=== PATIENT | female | born 1950 | race Caucasian/White ===

== ENCOUNTER 2016-08-19 10:19 | Inpatient (IN) | payer BC, OTHER ==
[2016-08-19] MEDS ORDERED: SODIUM CHLORIDE 0.9% 1,000 ML IV STA ×2 (10:25)
[2016-08-19] MEDS ORDERED: RX INFO: IV CONTRAST WAS GIVEN 1 EACH MISC MISCELLANE PRN (10:25)
[2016-08-19 10:29] LABS: Glucose,Whole Blood 269 mg/dL (75-99)
--- NOTE | 2016-08-19 10:51 | CT ---
EXAMINATION TYPE: CT brain wo con for TPA DATE OF EXAM: 08/19/2016 10:44 AM COMPARISON: NONE HISTORY: slurred speech. Code stroke. No deficit. CT DLP: 1047.1 mGycm Automated exposure control for dose reduction was used. FINDINGS: There is no acute intracranial hemorrhage, mass effect, or midline shift identified. The ventricles and sulci are within normal limits in size. Vague area of low-attenuation left lateral rubi is nonspe cific on axial image 14 cannot exclude acute ischemia this level but is only seen well on one image. The globes are intact and the visualized sinuses are clear. Soft tissue density left office auditor y canal is felt to reflect cerumen. IMPRESSION: No acute intracranial hemorrhage or midline shift is seen.
[2016-08-19] MEDS ORDERED: LABETALOL SYRINGE 5 MG/ML IVP STA ×2 (11:01→12:04)
--- NOTE | 2016-08-19 11:03 | ED ---
General Adult HPI - General Chief complaint: Neuro Symptoms/Deficit Stated complaint: TIA symptoms Time Seen by Provider: 08/19/16 10:24 Source: patient, RN notes reviewed, old records reviewed Mode of arrival: wheelchair Limitations: no limitations - History of Present Illness Initial comments: This is a 65-year-old female here for evaluation. Patient comes in for evaluation of difficulty with speech, inability to stay the words that she wants to say. Patient denies history of high blood pressure not questionable diabetes nonsmoker with no history of similar neurological symptoms. Patient has no headache. Patient does feel anxious. Patient states she was talking a friend at [employer] and was unable to get the words that she wanted to stay out of her mouth. She had some difficulty answering questions and noticed some decreased vision to the right. - Related Data Home Medications Medication Instructions Recorded Confirmed Ezetimibe/Simvastatin [Vytorin 1 tab PO HS 08/19/16 08/19/16 10-20 mg Tablet] Folic Acid 1 mg PO DAILY 08/19/16 08/19/16 Methotrexate Sodium [Methotrexate] 2.5 mg PO DIRECTED 08/19/16 08/19/16 Nystatin 100,000 Unit/ml Susp 500,000 units PO QID 08/19/16 08/19/16 [Mycostatin Oral Susp] Propranolol HCl [Propranolol HCl 120 mg PO DAILY 08/19/16 08/19/16 ER] Zolpidem [Ambien] 10 mg PO HS 08/19/16 08/19/16 Allergies Allergy/AdvReac Type Severity Reaction Status Date / Time No Known Allergies Allergy Verified 08/19/16 10:20 Review of Systems ROS Statement: Those systems with pertinent positive or pertinent negative responses have been documented in the HPI. ROS Other: All systems not noted in ROS Statement are negative. Past Medical History History of Any Multi-Drug Resistant Organisms: None Reported Past Psychological History: No Psychological Hx Reported General Exam - General Exam Comments Initial Comments: NIH of 6 Limitations: no limitations General appearance: alert, in no apparent distress Head exam: Present: atraumatic, normocephalic, normal inspection Eye exam: Present: normal appearance, PERRL, EOMI. Absent: scleral icterus, conjunctival injection, periorbital swelling ENT exam: Present: normal exam, mucous membranes moist Neck exam: Present: normal inspection. Absent: tenderness, meningismus, lymphadenopathy Respiratory exam: Present: normal lung sounds bilaterally. Absent: respiratory distress, wheezes, rales, rhonchi, stridor Cardiovascular Exam: Present: regular rate, normal rhythm, normal heart sounds. Absent: systolic murmur, diastolic murmur, rubs, gallop, clicks GI/Abdominal exam: Present: soft, normal bowel sounds. Absent: distended, tenderness, guarding, rebound, rigid Extremities exam: Present: normal inspection, full ROM, normal capillary refill. Absent: tenderness, pedal edema, joint swelling, calf tenderness Back exam: Present: normal inspection Neurological exam: Present: alert, oriented X3, CN II-XII intact Psychiatric exam: Present: normal affect, normal mood Skin exam: Present: warm, dry, intact, normal color. Absent: rash Course Vital Signs 08/19/16 10:20 Temperature 98.4 F Pulse Rate 101 H Respiratory 18 Rate Blood Pressure 254/139 O2 Sat by Pulse 93 L Oximetry - Reevaluation(s) Reevaluation #1: 08/19/16 11:01 : Stroke is paged, symptoms are no improving Reevaluation #2: 08/19/16 11:02 Patient is given blood pressure control Reevaluation #3: 08/19/16 11:36 Patient was seen and evaluated by neuro interventional, decision to TPA or treat is not needed at this time is patient's gone from an age of 6 to NIH of 3 , low NIH Medical Decision Making - Medical Decision Making 65 female with positive CVA. CV that is improving. Patient will be admitted for control of blood pressure, and neurological evaluation - Lab Data Result diagrams: 08/19/16 11:02 08/19/16 11:02 Lab Results 08/19/16 08/19/16 08/19/16 Range/Units 10:28 11:02 11:02 WBC 5.0 (3.8-10.6) k/uL RBC 5.43 H (3.80-5.40) m/uL Hgb 16.3 H (11.4-16.0) gm/dL Hct 48.1 H (34.0-46.0) % MCV 88.6 (80.0-100.0) fL MCH 30.1 (25.0-35.0) pg MCHC 33.9 (31.0-37.0) g/dL RDW 13.1 (11.5-15.5) % Plt Count 249 (150-450) k/uL Neutrophils % 63 % Lymphocytes % 26 % Monocytes % 5 % Eosinophils % 2 % Basophils % 1 % Neutrophils # 3.2 (1.3-7.7) k/uL Lymphocytes # 1.3 (1.0-4.8) k/uL Monocytes # 0.3 (0-1.0) k/uL Eosinophils # 0.1 (0-0.7) k/uL Basophils # 0.0 (0-0.2) k/uL PT (9.0-12.0) sec INR (<1.1) APTT (22.0-30.0) sec Sodium 140 (137-145) mmol/L Potassium 4.1 (3.5-5.1) mmol/L Chloride 102 (98-107) mmol/L Carbon Dioxide 25 (22-30) mmol/L Anion Gap 13 mmol/L BUN 12 (7-17) mg/dL Creatinine 0.77 (0.52-1.04) mg/dL Est GFR (MDRD) Af Amer >60 (>60 ml/min/1.73 sqM) Est GFR (MDRD) Non-Af >60 (>60 ml/min/1.73 sqM) Glucose 229 H (74-99) mg/dL POC Glucose (mg/dL) 269 H (75-99) mg/dL POC Glu Hop Sorter ID [place], [place] Calcium 9.4 (8.4-10.2) mg/dL Total Bilirubin 1.0 (0.2-1.3) mg/dL AST 25 (14-36) U/L ALT 37 (9-52) U/L Alkaline Phosphatase 105 (38-126) U/L Total Protein 7.4 (6.3-8.2) g/dL Albumin 4.0 (3.5-5.0) g/dL 08/19/16 Range/Units 11:02 WBC (3.8-10.6) k/uL RBC (3.80-5.40) m/uL Hgb (11.4-16.0) gm/dL Hct (34.0-46.0) % MCV (80.0-100.0) fL MCH (25.0-35.0) pg MCHC (31.0-37.0) g/dL RDW (11.5-15.5) % Plt Count (150-450) k/uL Neutrophils % % Lymphocytes % % Monocytes % % Eosinophils % % Basophils % % Neutrophils # (1.3-7.7) k/uL Lymphocytes # (1.0-4.8) k/uL Monocytes # (0-1.0) k/uL Eosinophils # (0-0.7) k/uL Basophils # (0-0.2) k/uL PT 10.5 (9.0-12.0) sec INR 1.0 (<1.1) APTT 24.3 (22.0-30.0) sec Sodium (137-145) mmol/L Potassium (3.5-5.1) mmol/L Chloride (98-107) mmol/L Carbon Dioxide (22-30) mmol/L Anion Gap mmol/L BUN (7-17) mg/dL Creatinine (0.52-1.04) mg/dL Est GFR (MDRD) Af Amer (>60 ml/min/1.73 sqM) Est GFR (MDRD) Non-Af (>60 ml/min/1.73 sqM) Glucose (74-99) mg/dL POC Glucose (mg/dL) (75-99) mg/dL POC Glu Hop Sorter ID Calcium (8.4-10.2) mg/dL Total Bilirubin (0.2-1.3) mg/dL AST (14-36) U/L ALT (9-52) U/L Alkaline Phosphatase (38-126) U/L Total Protein (6.3-8.2) g/dL Albumin (3.5-5.0) g/dL - Radiology Data Radiology results: report reviewed (CT brain, CTA head and neck is negative for acute disease), image reviewed Critical Care Time Critical Care Time: Yes Total Critical Care Time: 31 Disposition Clinical Impression: Cerebrovascular accident Disposition: ADMITTED IP TO THIS [facility] Condition: Serious Referrals: Lynn Miller DO [Primary Care Provider] - 1-2 days
[2016-08-19 11:12] LABS: Basophils % (A) 1 %; CH 30.5; CHCM 34.6; Eosinophils # (A) 0.1 k/uL (0-0.7); Eosinophils % (A) 2 %; HCT 48.1 % (34.0-46.0); HDW 2.43; HGB 16.3 gm/dL (11.4-16.0); Luc # (Auto) 0.13; Luc % (Auto) 3; Lymphocytes # (A) 1.3 k/uL (1.0-4.8); Lymphocytes % (A) 26 %; MCH 30.1 pg (25.0-35.0); MCHC 33.9 g/dL (31.0-37.0); MCV 88.6 fL (80.0-100.0); Mean Platelet Volume 7.2; Monocytes # (A) 0.3 k/uL (0-1.0); Monocytes % (A) 5 %; Neutrophils # (A) 3.2 k/uL (1.3-7.7); Neutrophils % (A) 63 %; RBC 5.43 m/uL (3.80-5.40); RDW 13.1 % (11.5-15.5); WBC (Perox) 4.99
[2016-08-19 11:24] LABS: ALT 37 U/L (9-52); AST 25 U/L (14-36); Alkaline Phosphatase 105 U/L (38-126); Anion Gap 13 mmol/L; Blood Urea Nitrogen 12 mg/dL (7-17); Calcium 9.4 mg/dL (8.4-10.2); Carbon Dioxide 25 mmol/L (22-30); Chloride 102 mmol/L (98-107); Glucose 229 mg/dL (74-99); Non-African American GFR(MDRD) >60 (>60 ml/min/1.73 sqM); Potassium 4.1 mmol/L (3.5-5.1); Sodium 140 mmol/L (137-145); Total Protein 7.4 g/dL (6.3-8.2)
--- NOTE | 2016-08-19 11:24 | CT ---
EXAMINATION TYPE: CT angio head neck DATE OF EXAM: 08/19/2016 11:10 AM HISTORY: Slurred speech COMPARISON: NONE CT DLP: 381.7 mGycm. Automated Exposure Control for Dose Reduction was Utilized. TECHNIQUE: CTA scan of the neck is performed with IV Contrast, patient injected with 65 mL of Omnipa que 350, axial images are obtained, coronal and sagittal reformatted images are reviewed. Three-D rec onstructed images are created on an independent workstation and reviewed. FINDINGS: Carotid/Vascular Structures: There is normal three-vessel origin from aortic arch. No significant james que is seen in aorta or 3 great vessels . The right common carotid artery shows normal origin from th e right brachiocephalic artery. There is no significant plaque or stenosis in the right common or int ernal carotid artery including level of right carotid bulb. There is patent external carotid artery w ithout significant plaque or stenosis. Left common carotid and internal carotid artery shows no significant plaque or stenosis including at level of left carotid bulb. There is patent left external carotid artery without significant plaque o r stenosis. There is dominant left vertebral artery. There is very small caliber right vertebral artery and proxi mal to mid segments, nonvisualized distal portion is noted suggesting complete stenosis or occlusion. There is patent left posterior communicating artery. There is hypoplastic right P1 segment with filli ng of P2 segment due to patent posterior communicating artery. No significant stenosis or and small c hange is seen. Images of the anterior circulation show patent anterior communicating artery. No signi ficant stenosis or aneurysmal change is evident. Other: There is air-fluid level or dependent opacification in the left maxillary sinus, query acute s inusitis. There is moderate multilevel spurring and disc space narrowing most prominent at C5-C6 and C6-C7 leve ls in the cervical spine. Multilevel uncovertebral facet degenerative changes are present bilaterally . IMPRESSION: 1. No significant focal stenosis or aneurysmal change at the level of the [place]. Normal va riant noted. 2. No significant focal stenosis in common or internal carotid arteries bilaterally. No significant p laque is present. There is nonvisualization or suspected occlusion of small caliber nondominant right vertebral artery before basilar junction incidentally noted.
[2016-08-19 11:26] LABS: Partial Thromboplastin Time 24.3 sec (22.0-30.0); Prothrombin Time 10.5 sec (9.0-12.0)
[2016-08-19] MEDS ORDERED: ASPIRIN 81 MG CHEW PO STA (11:27)
[2016-08-19] MEDS ORDERED: ASPIRIN 325 MG TAB PO STA (11:34)
[2016-08-19 11:44] LABS: Appearance,Urine Clear (Clear); Bilirubin,Urine Negative (Negative); Glucose,Urine (UA) 3+ (Negative); Ketones,Urine Negative (Negative); Leukocyte Esterase,Urine Negative (Negative); Nitrite,Urine Negative (Negative); Protein,Urine Negative (Negative); Specific Gravity,Urine 1.016 (1.001-1.035); UA Billing (MACRO vs. MICRO) CHEM; Urobilinogen,Urine <2.0 mg/dL (<2.0)
[2016-08-19 11:45] LABS: Creatine Kinase 126 U/L (30-135)
[2016-08-19 11:56] LABS: Troponin I <0.012 ng/mL (0.000-0.034)
--- NOTE | 2016-08-19 13:32 | US ---
EXAMINATION TYPE: US carotid duplex BILAT DATE OF EXAM: 08/19/2016 1:05 PM COMPARISON: NONE CLINICAL HISTORY: Stenosis. Difficulty speaking, altered mental status, headache EXAM MEASUREMENTS: RIGHT: Peak Systolic Velocity (PSV) cm/sec ----- Right CCA: 54.8 ----- Right ICA: 60.3 ----- Right ECA: 60.3 ICA/CCA ratio: 1.1 RIGHT: End Diastole cm/sec ----- Right CCA: 17.5 ----- Right ICA: 18.6 ----- Right ECA: 12.0 LEFT: Peak Systolic Velocity (PSV) cm/sec ----- Left CCA: 52.6 ----- Left ICA: 74.6 ----- Left ECA: 62.5 ICA/CCA ratio: 1.4 LEFT: End Diastole cm/sec ----- Left CCA: 18.6 ----- Left ICA: 28.5 ----- Left ECA: 14.2 VERTEBRALS (direction of flow): Right Vertebral: Antegrade Left Vertebral: Antegrade Mild plaque noted bilateral bifurcations. No increased velocities. No significant stenosis. Decreased flow right vertebral artery IMPRESSION: I DO NOT SEE EVIDENCE OF A HEMODYNAMICALLY SIGNIFICANT STENOSIS IN EITHER CAROTID SYSTEM. Criteria for Assigning % of Stenosis / Diameter reduction (Estimation based on the indirect measurements of the internal carotid artery velocities (ICA PSV). 1. Normal (no stenosis)=ICA PSV < 125 cm/s: ratio < 2.0: ICA EDV<40 cm/s. 2. Less than 50% stenosis=ICA PSV < 125 cm/s: ratio < 2.0: ICA EDV<40 cm/s. 3. 50 to 69% stenosis=ICA PSV of 125 to 230 cm/s: ration 2.0 ? 4.0: ICA EDV 40-100 cm/s. 4. Greater than 70% stenosis to near occlusion= ICA PSV > 230 cm/s: ratio > 4.0: ICA EDV > 100 cm/s. 5. Near occlusion= ICA PSV velocities may be low or undetectable: variable ratio and ICA EDV. 6. Total occlusion=unable to detect flow.
[2016-08-19 14:19] VITALS: BMI 29.7
--- NOTE | 2016-08-19 16:37 | P.CONS ---
History of Present Illness - Reason for Consult Consult date: 08/19/16 - Chief Complaint Expressive aphasia - History of Present Illness This is a 65-year-old female being evaluated by the neurology service for the above complaints. She gives no prior history of stroke or TIA. She has no significant history of hypertension. She states that she was talking to a friend at [employer] and suddenly became unable to get certain words out. She denies any headaches or dizziness lateralizing weakness. She says she may have had some decreased vision in the right eye. She has a known diagnosis of macular degeneration according to her. Initial CT of the brain showed no acute changes, but did show a questionable area of low attenuation in the left rubi. CTA of the head and neck were normal. Her carotid Doppler showed no hemodynamically significant stenosis. Her blood pressure was significantly elevated at 254/139. This was in the ER. Her labs were relatively normal except for glucose of 269, on recheck remain 229. At the time of my exam she is resting comfortably in bed and still has intermittent episodes of expressive aphasia. Review of Systems All systems: negative Constitutional: Reports as per HPI Past Medical History Past Medical History: No Reported History Additional Past Medical History / Comment(s): essential tremors History of Any Multi-Drug Resistant Organisms: None Reported Past Surgical History: Section, Hysterectomy Past Anesthesia/Blood Transfusion Reactions: No Reported Reaction Past Psychological History: No Psychological Hx Reported Smoking Status: Never smoker - Past Family History Father Family Medical History: GERD/Reflux Mother Family Medical History: Cancer, Dementia, Diabetes Mellitus Medications and Allergies Home Medications Medication Instructions Recorded Confirmed Type Ibuprofen [Advil] 400 mg PO BID 08/19/16 08/19/16 History Ranitidine HCl [Zantac] 75 mg PO DAILY 08/19/16 08/19/16 History Allergies Allergy/AdvReac Type Severity Reaction Status Date / Time No Known Allergies Allergy Verified 08/19/16 12:57 Physical Exam Vitals: Vital Signs Temp Pulse Pulse Resp BP BP Pulse Ox 08/19/16 12:53 97.1 F L 08/19/16 12:52 67 184/115 94 L 08/19/16 12:32 66 18 168/110 97 08/19/16 12:08 68 18 190/115 98 08/19/16 11:53 71 18 191/119 99 08/19/16 11:38 72 18 196/125 97 Intake and Output 08/19/16 08/19/16 08/19/16 06:59 14:59 22:59 Other: # Voids 1 Weight 86.183 kg Patient Weight 08/20/16 06:59 Weight 86.183 kg - Constitutional General appearance: average body habitus, cooperative, no acute distress - EENT Eyes: no abnormal pupil, EOMI, PERRLA, no ptosis ENT: hearing grossly normal - Neck Neck: normal ROM, no rigidity - Respiratory Respiratory: negative: prolonged expiration, prolonged inspiration - Cardiovascular Heart rate: 100 Rhythm: regular - Gastrointestinal General gastrointestinal: no distended, no tenderness - Neurologic Patient is alert awake and oriented 3. Speech and language show intermittent mild expressive aphasia. Language is normal. Naming is intact. Cranial nerves are otherwise intact. There is no lateralizing weakness. She has bilateral upper extremity postural tremors. These are of a chronic nature according to her. There is no pronator drift. Romberg is negative. Sensory exam shows no deficits in any extremity. Results CBC & Chem 7: 08/19/16 11:02 08/19/16 11:02 Assessment and Plan (1) Expressive aphasia Status: Acute (2) Hypertensive urgency Status: Acute (3) Blurred vision Status: Acute (4) Cerebrovascular accident Status: Acute (5) Hypertension Status: Chronic (6) Hyperlipidemia Status: Chronic (7) Hyperglycemia Status: Acute Plan: She has likely experienced an acute stroke causing her persistent expressive aphasia. Recommend Cardiology follow and make recommendations regarding her elevated blood pressure. I have ordered an MRI of the brain, fasting lipid panel, serum homocysteine level, and hemoglobin A1c due to her persistent elevated glucose. Speech therapy has been notified, and will evaluate. She denies any swallowing difficulties at this point. Continue neuro checks. I will start her on aspirin 325 mg daily. I will continue to follow and make recommendations based on the above workup. I have reviewed the history and physical on the above patient. I have reviewed the above note, and agree.
[2016-08-19] MEDS: SODIUM CHLORIDE 0.9% 1,000 ML IV SCH ×2 (17:22→21:48)
[2016-08-19 19:28] LABS: Hemoglobin A1C 8.4 % (4.2-6.1)
--- NOTE | 2016-08-19 20:50 | MR ---
EXAMINATION TYPE: MR brain wo con DATE OF EXAM: 08/19/2016 8:39 PM COMPARISON: NONE HISTORY: expressive aphasia Standard multiplanar, multisequence MRI departmental protocol Multiplanar, multisequence images of the brain were acquired. Diffusion weighted imaging was performe d. FINDINGS: There is mild cerebral cortical atrophy. There is no mass effect nor midline shift. There i s no sign of intracranial hemorrhage. Brainstem appears intact. There is no evidence of a posterior f sara mass. Ventricles are fairly normal size. On the FLAIR images there are scattered high signal foc i at the jovel-white matter junction of both cerebral hemispheres that measure up to 4 mm. The total n umber is approximately 10. The sella turcica is normal. Corpus callosum is intact. There is very slig ht increased signal in the subependymal white matter around the lateral ventricles. There is mild mucosal thickening in the left maxillary sinus. IMPRESSION: No evidence of acute cortical infarct. There are scattered white matter high signal small foci probab ly related to minimal small vessel ischemia. There is mild thin linear subependymal white matter incr eased signal that probably relates to CSF mechanics.
[2016-08-19] MEDS: ACETAMINOPHEN TAB 325 MG TAB PO PRN (21:51)
[2016-08-20] MEDS: SODIUM CHLORIDE 0.9% 1,000 ML IV SCH ×2 (03:53→15:17)
[2016-08-20] MEDS: ACETAMINOPHEN TAB 325 MG TAB PO PRN (06:28)
--- NOTE | 2016-08-20 07:53 | ECHOF ---
Referral Reason:Thrombus MEASUREMENTS -------- HEIGHT: 170.2 cm WEIGHT: 86.2 kg BP: 184/115 RVIDd: 3.2 cm (< 3.3) IVSd: 1.2 cm (0.6 - 1.1) LVIDd: 4.4 cm (3.9 - 5.3) LVPWd: 1.2 cm (0.6 - 1.1) IVSs: 1.6 cm LVIDs: 3.0 cm LVPWs: 1.5 cm LA Diam: 3.2 cm (2.7 - 3.8) LAESV Index (A-L): 16.92 ml/m Ao Diam: 3.1 cm (2.0 - 3.7) AV Cusp: 2.1 cm (1.5 - 2.6) MV EXCURSION: 9.111 mm (> 18.000) MV EF SLOPE: 26 mm/s (70 - 150) EPSS: 0.7 cm MV E Kennedy: 0.81 m/s MV DecT: 275 ms MV A Kennedy: 0.89 m/s MV E/A Ratio: 0.91 FINDINGS -------- Sinus rhythm. This was a technically good study. The left ventricular size is normal. There is borderline concentric left ventricular hypertrophy. Overall left ventricular systolic function is normal with, an EF between 55 - 60 %. The right ventricle is normal in size. Normal LA size by volume 22+/-6 ml/m2. The right atrium is normal in size. The aortic valve is trileaflet and appears structurally normal. Mild mitral annular calcification present. Mild mitral regurgitation is present. The tricuspid valve appears structurally normal. Moderate pulmonic regurgitation. The aortic root size is normal. Normal inferior vena cava with less than 50% inspiratory collapse consistent with estimated right atrial pressure of 15 mmHg. There is no pericardial effusion. CONCLUSIONS -------- 1. Sinus rhythm. 2. Mild mitral annular calcification present. 3. Mild mitral regurgitation is present. 4. The tricuspid valve appears structurally normal. 5. Moderate pulmonic regurgitation. 6. The aortic root size is normal. 7. Normal inferior vena cava with less than 50% inspiratory collapse consistent with estimated right atrial pressure of 15 mmHg. 8. There is no pericardial effusion. 9. This was a technically good study. 10. The left ventricular size is normal. 11. There is borderline concentric left ventricular hypertrophy. 12. Overall left ventricular systolic function is normal with, an EF between 55 - 60 %. 13. The right ventricle is normal in size. 14. Normal LA size by volume 22+/-6 ml/m2. 15. The right atrium is normal in size. 16. The aortic valve is trileaflet and appears structurally normal. FEED ADVISER: Tami Roman RDCS
[2016-08-20] MEDS: ASPIRIN 325 MG TAB PO SCH (09:12)
[2016-08-20] MEDS ORDERED: Acetaminophen-Codeine 300-30mg TAB PO STA (13:15)
--- NOTE | 2016-08-20 16:20 | P.PN ---
Subjective Principal diagnosis: CVA This is a 65 female continuing to be evaluated by the neurology service. Recall that she had an acute onset of expressive aphasia. Her symptoms have been intermittent since but they do persist. Initial CT of the brain showed no acute intracranial abnormalities, but a questionable low area of attenuation in the left rubi. He of the head and neck were normal. Subsequent MRI of the brain did not show an area of definite ischemia. At the time of my exam she is resting comfortably in bed. She continues to have mildly elevated blood pressure. She does complain that for the last 24 hours she has had a moderate frontal headache. She describes it as constant, and morbid pressure. There is no pounding or pulsating. She denies any new neurological symptoms other than this. Objective - Vital Signs Vital signs: Vital Signs Temp 98.2 F 08/20/16 15:37 Pulse 77 08/20/16 15:37 Resp 17 08/20/16 15:37 BP 168/92 08/20/16 15:37 Pulse Ox 93 L 08/20/16 15:37 Intake & Output 08/19/16 08/20/16 08/20/16 18:59 06:59 18:59 Intake Total 1250 200 Output Total 350 Balance 1250 -150 Weight 86.183 kg 87.1 kg Intake: IV 900 Sodium Chloride 0.9% 1, 900 000 ml @ 100 mls/hr IV . Q10H AGUSTIN Rx#:[id number] Oral 350 200 Output: Urine 350 Other: Voiding Method Toilet Toilet # Voids 1 1 - Constitutional General appearance: Present: average body habitus, cooperative, no acute distress - EENT Eyes: Present: EOMI, PERRLA. Absent: abnormal pupil, ptosis ENT: Present: hearing grossly normal - Neck Neck: Present: normal ROM. Absent: rigidity - Respiratory Respiratory: negative: prolonged expiration, prolonged inspiration - Cardiovascular Rhythm: regular - Gastrointestinal General gastrointestinal: Absent: distended, tenderness - Neurologic Neurologic Comment(s): She is alert awake and oriented 3. Speech and language are normal. There is no facial asymmetry. There is no lateralizing weakness. No tremors or seizure- like activities are seen. - Labs CBC & Chem 7: 08/19/16 11:02 08/19/16 11:02 Assessment and Plan (1) Expressive aphasia Status: Acute (2) Hypertensive urgency Status: Resolved (3) Blurred vision Status: Acute (4) Cerebrovascular accident Status: Acute (5) Hypertension Status: Chronic (6) Hyperlipidemia Status: Chronic (7) Hyperglycemia Status: Acute (8) Frontal headache Status: Acute Plan: She has likely experienced an acute stroke causing her persistent expressive aphasia. Again recommend Cardiology follow and make recommendations regarding her elevated blood pressure. I am awaiting her fasting lipid panel and serum homocysteine level, and hemoglobin A1c due to her persistent elevated glucose. Speech therapy has been consulted. She denies any swallowing difficulties at this point. Continue neuro checks. She will continue aspirin 325 mg daily. I will continue to follow and make recommendations based on the above workup. As for her headache, this may be simply due to her persistently elevated blood pressure. She will be given either Tylenol or Tylenol with Codeine as needed. I have reviewed the history and physical on the above patient. I have reviewed the above note, and agree.
[2016-08-20] MEDS: LISINOPRIL 10 MG TAB PO SCH (18:22)
--- NOTE | 2016-08-20 21:41 | HP ---
CHIEF COMPLAINT: Expressive aphasia. HISTORY OF PRESENT ILLNESS: Ms. Borges is a 65-year-old female without a significant past medical history who came to the ER with complaints of difficulty finding words out which happened yesterday morning. Patient came to the ER for further evaluation. The patient denied any complaints of weakness. Patient does complain of left eye decreased vision. Patient does have a history of cataracts of the left eye. Otherwise, the patient had a CT of the head, showed no acute changes. There is a questionable low attenuation in the left rubi. CT angiogram of the head and neck were normal. Carotid duplex showed no significant stenosis. Blood pressure was significantly elevated at 254/139 on admission. The patient otherwise still having difficulty finding words and expressive aphasia, but her symptoms are significantly improved since admission. DATE OF ADMISSION: Blood pressure is still elevated and patient is otherwise tolerating a p.o. diet. No difficulty swallowing noted. REVIEW OF SYSTEMS: CONSTITUTIONAL: No fever. No chills. RESPIRATORY: No cough or sputum production. CARDIOVASCULAR: No chest pains or shortness of breath. ABDOMEN: No nausea, vomiting or abdominal pain. GENITOURINARY: Negative. ENDOCRINE: Negative. PSYCHIATRIC: Negative. SKIN: Negative. MUSCULOSKELETAL: Negative. All other 14-point review of systems negative except as above. PAST MEDICAL HISTORY: Essential tremors. Otherwise, no history of hypertension, diabetes mellitus or heart disease. PAST SURGICAL HISTORY: , hysterectomy. No psychosocial history. SOCIAL HISTORY: Patient never a smoker. Denied any alcohol. Denied any drugs or IVDU. FAMILY HISTORY: Father has GERD. Mother has cancer, dementia and diabetes. Home medications include: 1. Ibuprofen. 2. Zantac. ALLERGIES: No known drug allergies. PHYSICAL EXAMINATION: A 65-year-old female, lying in bed comfortably; awake, alert, oriented x3, appears to be in no apparent distress. VITALS: Blood pressure is 187/96, pulse is 63, respirations 16, temperature afebrile, pulse ox 93% on room air. HEENT: Atraumatic, normocephalic. Neck is supple. No JVD. CVS: S1, S2 heard. No murmurs. No gallop. No rub. LUNGS: Bilateral air entry is present. No edema. No crackles. ABDOMEN: Soft, nontender. Bowel sounds present. ROBOTICS ENGINEER: Awake, alert, alert and oriented x3. The patient does have expressive aphasia. No balance issues and no weakness. Strength 5 out 5 in all 4 extremities. No facial palsy noted. Patient still complains of a little difficulty with vision in the left eye. EXTREMITIES: No edema. Pulses palpable bilaterally. No clubbing or cyanosis. PSYCHIATRIC: Cooperative. LABORATORY DATA: WBC 5.0, hemoglobin 16.3, platelets 249, INR 1.0. Sodium 140, potassium 4.1, chloride 102, bicarb is 25, BUN 12, creatinine 0.77. HbA1c 8.4. Troponin less than 0.012. UA negative. UDS negative. CT head showed no acute intracranial process. CT angiogram showed no evidence of any hemodynamically significant stenosis. Carotid duplex: No significant hemodynamically significant stenosis. A 2-D echo showed normal ejection fraction. No wall motion abnormalities noted. MRI of the brain was done, showed no evidence of acute cortical infarct. There were scattered white matter high-signal small foci, probably related to be minimal small-vessel ischemia. There is mild thin layer subependymal white matter increased signal that probably related to CSF mechanics. No evidence of acute cortical infarct perceived on MRI of the brain. IMPRESSION: 1. Expressive aphasia and blurred vision, most likely due to acute cerebrovascular accident, possibly small-vessel ischemia. 2. New onset of diabetes mellitus, HbA1c of 8.4. 3. Hypertension, uncontrolled, new onset. No history of hypertension in the past. 4. Blurred vision. DISCUSSION AND PLAN: Patient was admitted to hospital with expressive aphasia, possibly microvascular ischemia. MRI of the brain did not show any acute cortical infarct. Will continue with the speech evaluation. Patient is tolerating p.o. diet. Will continue the aspirin and will hold IV fluids. If the blood pressure is still elevated, will start the patient on lisinopril 10 mg daily. Continue with neuro checks and Neurology is on board. The patient will be started on hypoglycemic medications and follow up closely. Further recommendations based on the clinical course.
[2016-08-21 00:49] VITALS: RESP 17
[2016-08-21] MEDS: ACETAMINOPHEN TAB 325 MG TAB PO PRN (03:59)
[2016-08-21 06:26] LABS: Glucose,Whole Blood 140 mg/dL (75-99)
[2016-08-21] MEDS: metFORMIN 500 MG TAB PO SCH ×2 (06:38→17:10)
[2016-08-21] MEDS: ASPIRIN 325 MG TAB PO SCH (07:38)
[2016-08-21] MEDS: LISINOPRIL 10 MG TAB PO SCH (07:39)
[2016-08-21 07:47] VITALS: PULSE 69
[2016-08-21 11:06] LABS: Cholesterol 239 mg/dL (<200); HDL Cholesterol 40 mg/dL (40-60); Triglycerides 270 mg/dL (<150)
[2016-08-21 11:32] LABS: Glucose,Whole Blood 191 mg/dL (75-99)
--- NOTE | 2016-08-21 12:02 | P.CRDCN ---
History of Present Illness Consult date: 08/21/16 Requesting physician: Lynn Miller Consult reason: hypertension Chief complaint: Expressive aphasia and visual disturbance History of present illness: This is a pleasant 65-year-old female with no significant past medical history, she denies any history of hypertension, no diabetes, no hyperlipidemia, she is a nonsmoker. She presented to the hospital with symptoms of expressive aphasia with associated mild visual disturbance. According to the patient, she was speaking with a friend at [employer], suddenly was unable to get the words out that she wanted to say. She also states then that she had some disturbance in her vision. Patient went home and ultimately came to the emergency room for further evaluation. She states that she has not seen her regular doctor for approximately 5 years. Blood pressure on arrival here 254/139, initial EKG shows a normal sinus rhythm with evidence of LVH strain pattern. 93% on room air on admission here. Initial CAT scan of the brain did not reveal any acute intracranial hemorrhage or midline shift. CT of the head and neck was performed which did not reveal any significant focal stenosis or aneurysmal change at the level of the [place]. No significant focal stenosis in the common or internal carotid arteries. Carotid Doppler study did not reveal any significant carotid stenosis. Echocardiogram with Doppler study was performed which revealed an ejection fraction of 55-60%. Brain MRI did not reveal any evidence of acute cortical infarct. There are scattered white matter changes probably related to small vessel ischemia. Hemoglobin 16.3, WBC 5.0. Potassium 4.1, BUN 12, creatinine 0.7. Troponin 0.012. Cholesterol 239, triglycerides 270, LDL 145, HDL 40. At the time of my examination this morning, patient's expressive aphasia has resolved, vision is normal this morning. She denies headache, no palpitations. No evidence of atrial fibrillation on the monitor. Blood pressure 175/112 this morning. Past Medical History Past Medical History: No Reported History Additional Past Medical History / Comment(s): essential tremors History of Any Multi-Drug Resistant Organisms: None Reported Past Surgical History: Section, Hysterectomy Past Anesthesia/Blood Transfusion Reactions: No Reported Reaction Past Psychological History: No Psychological Hx Reported Smoking Status: Never smoker - Past Family History Father Family Medical History: GERD/Reflux Mother Family Medical History: Cancer, Dementia, Diabetes Mellitus Medications and Allergies Home Medications Medication Instructions Recorded Confirmed Type Ibuprofen [Advil] 400 mg PO BID 08/19/16 08/19/16 History Ranitidine HCl [Zantac] 75 mg PO DAILY 08/19/16 08/19/16 History Allergies Allergy/AdvReac Type Severity Reaction Status Date / Time No Known Allergies Allergy Verified 08/19/16 12:57 Physical Exam Vitals: Vital Signs Temp Pulse Resp BP Pulse Ox 08/21/16 07:39 97.7 F 69 16 175/112 94 L 08/21/16 04:00 66 17 144/79 96 08/21/16 00:00 63 17 158/95 96 08/20/16 20:00 97.5 F L 68 16 179/98 95 08/20/16 15:37 98.2 F 69 16 168/92 93 L 08/20/16 12:15 97.6 F 63 16 187/96 93 L Intake and Output 08/20/16 08/21/16 08/21/16 22:59 06:59 14:59 Intake Total 250 Output Total 350 Balance -350 250 Intake: Oral 250 Output: Urine 350 Other: Voiding Method Toilet Toilet Toilet # Voids 1 1 Weight 86.9 kg PHYSICAL EXAMINATION: HEENT: Head is atraumatic, normocephalic. Pupils equal, round. Neck is supple. There is no elevated jugular venous pressure. HEART EXAMINATION: Heart S1, S2 normal. No murmur or gallop heard. CHEST EXAMINATION: Lungs are clear to auscultation and precussion. No chest wall tenderness is noted on palpation or with deep breathing. ABDOMEN: Soft, nontender. Bowel sounds are heard. No organomegaly noted. EXTREMITIES: 2+ peripheral pulses with no evidence of peripheral edema and no calf tenderness noted. NEUROLOGIC patient is awake, alert and oriented -3. . Results 08/19/16 11:02 08/19/16 11:02 Lipids 08/21/16 Range/Units 10:29 Triglycerides 270 H (<150) mg/dL Cholesterol 239 H (<200) mg/dL HDL Cholesterol 40 (40-60) mg/dL Current Medications Generic Name Dose Route Start Last Admin Trade Name Freq PRN Reason Stop Dose Admin Acetaminophen 650 mg 08/19/16 21:45 08/21/16 03:59 Tylenol Tab PO 650 mg Q6HR PRN Administration Fever and/ or Mild Pain Aspirin 325 mg 08/20/16 09:00 08/21/16 07:38 Aspirin PO 325 mg DAILY AGUSTIN Administration Lisinopril 10 mg 08/20/16 18:00 08/21/16 07:39 Zestril PO 10 mg DAILY AGUSTIN Administration Metformin HCl 500 mg 08/21/16 07:30 08/21/16 06:38 Glucophage PO 500 mg BID-W/MEALS AGUSTIN Administration Intake and Output 08/20/16 08/21/16 08/21/16 22:59 06:59 14:59 Intake Total 250 Output Total 350 Balance -350 250 Intake: Oral 250 Output: Urine 350 Other: Voiding Method Toilet Toilet Toilet # Voids 1 1 Weight 86.9 kg EKG Interpretations (text) EKG shows normal sinus rhythm with evidence of LVH strain pattern. Assessment and Plan Plan: Assessment and plan #1 symptoms of expressive aphasia with visual disturbance, representing acute TIA/CVA. #2 hypertensive urgency #3 hyperlipidemia, untreated #4 possible diabetes, glucose on arrival 229., Hemoglobin A1c 8.4. Plan Echocardiogram with Doppler study revealed an ejection fraction of 55-60%. Moderate pulmonic regurg. Patient is currently on an aspirin, along with Zestril 10 mg daily, she's also been initiated on metformin. We will start the patient on Lipitor. Patient has evidence of strokes secondary to small vessel disease unlikely secondary to hypertension. Patient therefore does not require a transesophageal echocardiographic study. Would recommend however to start the patient on Plavix for approximately 3-4 weeks. DNP note has been reviewed, I agree with a documented findings and plan of care. Patient was seen and examined.
[2016-08-21] MEDS ORDERED: ATORVASTATIN 80 MG TAB PO SCH (12:15)
--- NOTE | 2016-08-21 13:00 | P.PN ---
Subjective Principal diagnosis: CVA This is a 65 female continuing to be evaluated by the neurology service. Recall that she had an acute onset of expressive aphasia. Her symptoms have been intermittent since but they do persist. Initial CT of the brain showed no acute intracranial abnormalities, but a questionable low area of attenuation in the left rubi. CT of the head and neck were normal. Subsequent MRI of the brain did not show an area of definite ischemia. At the time of my exam she is resting comfortably in bed. She continues to have mildly elevated blood pressure. She had been having a moderate frontal headache , that has resolved. She denies any new neurological symptoms. She has been evaluated by cardiology. Her glucose was persistently elevated and her hemoglobin A1c came back at 8.4. She also had glucosuria. Her lipid show a triglyceride of 270 a cholesterol 239 and LDL of 145 and HDL of 40. She has been started on Lipitor, metformin and lisinopril. Objective - Vital Signs Vital signs: Vital Signs Temp 97.6 F 08/21/16 11:54 Pulse 69 08/21/16 11:54 Resp 17 08/21/16 11:54 BP 141/84 08/21/16 11:54 Pulse Ox 96 08/21/16 11:54 Intake & Output 08/20/16 08/21/16 08/21/16 18:59 06:59 18:59 Intake Total 200 250 Output Total 350 Balance -150 250 Weight 86.9 kg Intake: Oral 200 250 Output: Urine 350 Other: Voiding Method Toilet Toilet Toilet # Voids 1 1 - Constitutional General appearance: Present: cooperative, no acute distress - EENT Eyes: Present: EOMI, PERRLA. Absent: abnormal pupil, ptosis ENT: Present: hearing grossly normal - Neck Neck: Present: normal ROM. Absent: rigidity - Respiratory Respiratory: negative: prolonged expiration, prolonged inspiration - Cardiovascular Rhythm: regular - Gastrointestinal General gastrointestinal: Absent: distended, tenderness - Neurologic Neurologic Comment(s): Patient is alert awake and oriented 3. Speech-language are normal. There is no Facial asymmetry. There is no lateralizing weakness. There is no deficit on sensory exam. Postural tremors are seen in bilateral upper extremities. No cogwheel rigidity - Labs CBC & Chem 7: 08/19/16 11:02 08/19/16 11:02 Labs: Abnormal Lab Results - Last 24 Hours (Table) 08/21/16 08/21/16 08/21/16 Range/Units 06:25 10:29 11:29 POC Glucose (mg/dL) 140 H 191 H (75-99) mg/dL Triglycerides 270 H (<150) mg/dL Cholesterol 239 H (<200) mg/dL LDL Cholesterol, Calc 145 H (0-99) mg/dL Assessment and Plan (1) Expressive aphasia Status: Acute (2) Hypertensive urgency Status: Resolved (3) Blurred vision Status: Acute (4) Cerebrovascular accident Status: Acute (5) Hypertension Status: Chronic (6) Hyperlipidemia Status: Chronic (7) Hyperglycemia Status: Acute (8) Frontal headache Status: Resolved Plan: She has likely experienced an acute stroke, versus microvascular ischemia causing her rare persistent expressive aphasia. She has been started on lisinopril for her elevated blood pressure, and metformin for her likely new diagnosis of diabetes. Her fasting lipid panel was abnormal and she is artery been started on Lipitor 20 mg. Speech therapy has been consulted. She denies any swallowing difficulties at this point. She will continue aspirin 325 mg daily. We will see her in outpatient setting to address her essential tremors. Otherwise she is cleared from a neurological standpoint. I have reviewed the history and physical on the above patient. I have reviewed the above note, and agree.
[2016-08-21] MEDS ORDERED: CLOPIDOGREL 75 MG TAB PO SCH (15:30)
[2016-08-21] MEDS ORDERED: LISINOPRIL 10 MG TAB PO STA (16:20)
[2016-08-21 16:31] LABS: Glucose,Whole Blood 102 mg/dL (75-99)
[2016-08-21 16:44] LABS: Basophils # (A) 0.1 k/uL (0-0.2); Basophils % (A) 1 %; CH 30.6; CHCM 34.9; Eosinophils # (A) 0.3 k/uL (0-0.7); Eosinophils % (A) 4 %; HCT 46.5 % (34.0-46.0); HDW 2.47; HGB 15.8 gm/dL (11.4-16.0); Luc # (Auto) 0.17; Luc % (Auto) 3; Lymphocytes # (A) 2.1 k/uL (1.0-4.8); Lymphocytes % (A) 36 %; MCH 29.9 pg (25.0-35.0); MCHC 34.1 g/dL (31.0-37.0); MCV 87.9 fL (80.0-100.0); Mean Platelet Volume 7.9; Monocytes # (A) 0.4 k/uL (0-1.0); Monocytes % (A) 6 %; Neutrophils # (A) 2.9 k/uL (1.3-7.7); Neutrophils % (A) 49 %; RBC 5.29 m/uL (3.80-5.40); RDW 12.8 % (11.5-15.5); WBC 5.8 k/uL (3.8-10.6); WBC (Perox) 5.96
[2016-08-21 16:54] LABS: Anion Gap 9 mmol/L; Blood Urea Nitrogen 13 mg/dL (7-17); Calcium 9.6 mg/dL (8.4-10.2); Carbon Dioxide 27 mmol/L (22-30); Chloride 104 mmol/L (98-107); Glucose 115 mg/dL (74-99); Non-African American GFR(MDRD) >60 (>60 ml/min/1.73 sqM); Sodium 140 mmol/L (137-145)
[2016-08-21 18:03] VITALS: TEMP 97.8
[2016-08-21 18:04] VITALS: BP 158/87
--- NOTE | 2016-08-23 07:49 | DS ---
DATE OF ADMISSION: 08/19/2016 DATE OF DISCHARGE: 08/21/2016 DISCHARGE DIAGNOSES: 1. Excessive aphasia and blurred vision most likely secondary to acute cerebrovascular accident, possible small vessel ischemia. CT head negative as well as MRI negative. 2. New onset diabetes mellitus, HbA1c of 8.4. 3. Hypertension, new onset. 4. Blurred vision, improved. HOSPITAL COURSE: Ms. Borges is a 65-year-old female without significant past medical history, came to the hospital with complaints of difficulty finding words and also blurred vision in the left eye. Patient had a CT of the head that was done that showed likely intracranial process. The patient had cardiopulmonary and stroke work-up including carotid duplex and 2-D echo was done, showed no ( ) abnormalities, normal ejection fraction. EKG normal sinus rhythm. Patient's MRI was done that showed no acute CVA noted. Otherwise, patient found to have uncontrolled hypertension as well as HBA1c 8.4. Patient does not have any history of hypertension or diabetes mellitus previously. Patient was started on metformin 500 mg b.i.d. for better blood sugar control and the patient was also started on antihypertensive medication losartan 10 mg per day but I increased it to 20 mg daily. Patient was advised to follow with primary care physician upon discharge to titrate the medications. Otherwise, patient symptomatically much improved and the patient was advised for ( ). The patient is hemodynamically stable to be discharged home. PHYSICAL EXAMINATION: A 65-year-old female, lying in the bed comfortable. Awake, alert, oriented x3, appears to be in no apparent distress. VITALS: Blood pressure is 158/87, pulse is 69, respirations 16, temperature afebrile, pulse ox 96% on room air. Laboratory data reviewed. Discharge physical examination done. Discharge medications include: 1. Ranitidine 75 mg p.o. daily. 2. Aspirin 325 mg p.o. daily. 3. Atorvastatin 80 mg p.o. daily. 4. Plavix 75 mg p.o. daily. 5. Lisinopril 20 mg p.o. daily. 6. Metformin 500 mg p.o. b.i.d. 7. Patient was started on Plavix 75mg p.o. daily for about 3 to 4 weeks as per Cardiology recommendations. 8. Patient was advised to follow with Dr. Lynn Miller in 1 to 2 days. 9. Follow with Dr. Tom in 1 week. Home with self-care. Heart-healthy and diabetic diet and ( ) when she follows with primary care physician. Otherwise, patient is stable to discharge home.
== END 2016-08-21 18:28 | disposition home or self-care (01) | DRG 66 ==
LOC: EC 10:19 → 6SEL 11:36
PROVIDERS: ADMIT Hospitalist; ATTEND Hospitalist
DX: I63.9 Cerebral infarction, unspecified (principal); E11.65 Type 2 diabetes mellitus with hyperglycemia; R47.01 Aphasia; I16.0 Hypertensive urgency; H53.8 Other visual disturbances; I10 Essential (primary) hypertension; R29.704 NIHSS score 4; G25.0 Essential tremor; H35.30 Unspecified macular degeneration; E78.5 Hyperlipidemia, unspecified; H26.9 Unspecified cataract; Z90.710 Acquired absence of both cervix and uterus; Z79.1 Long term (current) use of non-steroidal anti-inflammatories (NSAID); Z79.899 Other long term (current) drug therapy
CPT/HCPCS: 36415; 70450; 70496; 70498; 70551; 80048; 80053; 80061; 80306; 81003; 82550; 82553; 83036; 83090; 84484; 85025; 85610; 85730; 93005; 93306; 93880; 96361; 96365; 96374; 96375; 99285; 99291

== ENCOUNTER → 2017-01-09 | Outpatient (CLI) | payer BC, OTHER ==
[2017-01-09 11:51] LABS: Basophils % (A) 1 %; CH 31.1; CHCM 33.9; Eosinophils # (A) 0.1 k/uL (0-0.7); Eosinophils % (A) 2 %; HCT 46.1 % (34.0-46.0); HDW 2.42; Luc # (Auto) 0.09; Luc % (Auto) 2; Lymphocytes # (A) 1.5 k/uL (1.0-4.8); Lymphocytes % (A) 25 %; MCHC 34.7 g/dL (31.0-37.0); MCV 92.2 fL (80.0-100.0); Mean Platelet Volume 7.6; Monocytes # (A) 0.3 k/uL (0-1.0); Monocytes % (A) 5 %; Neutrophils % (A) 66 %; WBC 6.1 k/uL (3.8-10.6); WBC (Perox) 5.93
[2017-01-09 12:01] LABS: Appearance,Urine Clear (Clear); Bilirubin,Urine Negative (Negative); Glucose,Urine (UA) Negative (Negative); Ketones,Urine Negative (Negative); Leukocyte Esterase,Urine Negative (Negative); Nitrite,Urine Negative (Negative); PH, Urine 5.5 (5.0-8.0); Protein,Urine Negative (Negative); Specific Gravity,Urine 1.007 (1.001-1.035); UA Billing (MACRO vs. MICRO) CHEM; Urobilinogen,Urine <2.0 mg/dL (<2.0)
[2017-01-09 12:10] LABS: ALT 56 U/L (9-52); AST 37 U/L (14-36); Alkaline Phosphatase 76 U/L (38-126); Anion Gap 10 mmol/L; Blood Urea Nitrogen 14 mg/dL (7-17); Calcium 9.6 mg/dL (8.4-10.2); Carbon Dioxide 26 mmol/L (22-30); Chloride 106 mmol/L (98-107); Cholesterol 140 mg/dL (<200); Creatine Kinase 209 U/L (30-135); Glucose 85 mg/dL (74-99); HDL Cholesterol 43 mg/dL (40-60); Hemoglobin A1C 5.6 % (4.2-6.1); Non-African American GFR(MDRD) >60 (>60 ml/min/1.73 sqM); Potassium 4.4 mmol/L (3.5-5.1); Sodium 142 mmol/L (137-145); Total Bilirubin 1.3 mg/dL (0.2-1.3); Total Protein 7.5 g/dL (6.3-8.2); Uric Acid 5.3 mg/dL (3.7-7.4)
--- NOTE | 2017-01-09 14:59 | BD ---
EXAMINATION TYPE: MG DEXA axial skeleton. DATE OF EXAM: 01/09/2017 COMPARISON: 2005 CLINICAL HISTORY: osteoporosis Height: 5'5 Weight: 169 FRAX RISK QUESTIONS: Alcohol (3 or more units per day): no Family History (Parent hip fracture): no Glucocorticoids (More than 3mos): no (Ex: prednisone, prednisolone, methylprednisolone, dexamethasone, and hydrocortisone). History of Fracture in Adulthood: yes Secondary Osteoporosis: 1. Type 1 Diabetes: no 2. Hyperthyroidism: no 3. Menopause before 45: yes 4. Malnutrition: no 5. Chronic liver disease: no Rheumatoid Arthritis: yes Current Tobacco Use: no RISK FACTORS HISTORY OF: Diet low in dairy products/other sources of calcium: Postmenopausal woman: MEDICATIONS: Additional Medications: cholesterol, diabetes, aspirin, blood pressure Additional History: post menopausal EXAM MEASUREMENTS: Bone mineral densitometry was performed using the Cardios[employer] System. Bone mineral density as measured about the Lumbar spine is: ----- L1-L4(G/cm2): 1.256 T Score Values are as follows: ----- L2: 0.0 ----- L3: 1.4 ----- L4: 0.8 ----- L1-L4: 0.6 Bone mineral density has: Increased 4.7% since study of: 03/23/2006 Bone mineral density about the R hip (g/cm2): 0.911 Bone mineral density about the L hip (g/cm2): 0.852 T Score values are as follows: -----R Neck: -0.9 -----L Neck: -1.3 -----R Total: -0.2 -----L Total: -0.7 Bone mineral density has: Decreased -0.1% since study of: 03/23/2006 IMPRESSION: Osteopenia (T Score between -2.5 and -1 as noted by T score values: Left hip There is slightly increased risk of fracture and the patient may be considered for treatment. Re-Screen 2-5 years. NOTE: T-SCORE=SD OF THE YOUNG ADULT MEAN.
[2017-01-09 18:29] LABS: Urine Creatinine 63.4 mg/dL
--- NOTE | 2017-01-10 11:58 | MM ---
Reason for exam: screening (asymptomatic). Last mammogram was performed 9 years and 8 months ago. History: Patient is postmenopausal. Family history of breast cancer in mother at age 70. Physical Findings: A clinical breast exam by your physician is recommended on an annual basis and results should be correlated with mammographic findings. MG Screening Mammo w CAD Bilateral CC and MLO view(s) were taken. Prior study comparison: May 09, 2007, bilateral screening mammogram w/CAD. March 23, 2006, bilateral screening mammogram w/CAD. There are scattered fibroglandular densities. No significant changes when compared with prior studies. ASSESSMENT: Negative, BI-RAD 1 RECOMMENDATION: Routine screening mammogram of both breasts in 1 year.
== END | disposition home or self-care (01) ==
LOC: RADMAMWWP 11:17
PROVIDERS: ATTEND Internal Medicine
DX: Z12.31 Encounter for screening mammogram for malignant neoplasm of breast (principal); M85.80 Other specified disorders of bone density and structure, unspecified site; I10 Essential (primary) hypertension; E78.4 Other hyperlipidemia; E11.9 Type 2 diabetes mellitus without complications
CPT/HCPCS: 84439; 80061; 80053; 83036; 82550; 84443; 84550; 85025; 81003; 82306; 82043; 82570; 77080; G0202

== ENCOUNTER → 2017-02-21 | Outpatient (CLI) | payer BC, OTHER ==
--- NOTE | 2017-02-21 10:41 | US ---
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 elevated lft's, no symptoms EXAM MEASUREMENTS: Liver Length: 15.5 cm Gallbladder Wall: 0.3 cm CBD: 0.4 cm Spleen: 9.4 cm Right Kidney: 9.6 x 5.0 x 4.6 cm Left Kidney: 9.8 x 4.6 x 4.9 cm Pancreas: wnl Liver: wnl Gallbladder: wnl Evidence for sonographic Ribeiro's sign: no CBD: wnl Spleen: wnl Right Kidney: wnl Left Kidney: wnl Upper IVC: wnl Abd Aorta: wnl IMPRESSION: 1. Normal abdomen ultrasound.
[2017-02-21 12:13] LABS: ALT 101 U/L (9-52); AST 61 U/L (14-36); Alkaline Phosphatase 120 U/L (38-126); Anion Gap 8 mmol/L; Blood Urea Nitrogen 16 mg/dL (7-17); Calcium 9.8 mg/dL (8.4-10.2); Carbon Dioxide 29 mmol/L (22-30); Chloride 106 mmol/L (98-107); Cholesterol 174 mg/dL (<200); Creatine Kinase 131 U/L (30-135); Glucose 83 mg/dL (74-99); HDL Cholesterol 48 mg/dL (40-60); Non-African American GFR(MDRD) >60 (>60 ml/min/1.73 sqM); Potassium 4.7 mmol/L (3.5-5.1); Sodium 143 mmol/L (137-145); Total Bilirubin 0.9 mg/dL (0.2-1.3); Total Protein 7.4 g/dL (6.3-8.2)
== END | disposition home or self-care (01) ==
LOC: RADUSWWP 10:04
PROVIDERS: ATTEND Internal Medicine
DX: K76.0 Fatty (change of) liver, not elsewhere classified (principal); E78.4 Other hyperlipidemia
CPT/HCPCS: 76700; 80053; 80061; 82550; 84439; 84443

== ENCOUNTER → 2017-06-29 | Outpatient (CLI) | payer BC, OTHER ==
--- NOTE | 2017-06-29 15:24 | XR ---
EXAMINATION TYPE: XR Hip Complete LT DATE OF EXAM: 06/29/2017 CLINICAL HISTORY: Left hip pain TECHNIQUE: AP and frogleg views of the left hip are obtained. COMPARISON: None. FINDINGS: There is no acute fracture/dislocation evident in the left hip. There is mild acetabular r gill sclerosis and joint space narrowing with small subchondral cysts of the acetabular sourcil. The overlying soft tissue appears unremarkable. IMPRESSION: 1. No acute fracture or dislocation in the left hip. 2. Findings suggest moderate grade left femoral acetabular arthropathy.
--- NOTE | 2017-06-29 15:27 | XR ---
EXAMINATION TYPE: XR knee complete LT DATE OF EXAM: 06/29/2017 CLINICAL HISTORY: Left knee pain TECHNIQUE: Three views of the left knee are obtained. COMPARISON: None. FINDINGS: There is no acute fracture/dislocation evident in left knee. There is minimal medial isaac rtment joint space narrowing and tibial plateau sclerosis.. The overlying soft tissue appears unrema rkable. No suprapatellar joint effusion. IMPRESSION: 1. No acute fracture or dislocation in the left knee. 2. Mild medial compartment arthrosis.
--- NOTE | 2017-06-29 15:30 | XR ---
EXAMINATION TYPE: XR hand complete bilateral DATE OF EXAM: 06/29/2017 CLINICAL HISTORY: Bilateral hand pain for 10 years. No known injury TECHNIQUE: Frontal, lateral and oblique images of the bilateral hands are obtained. COMPARISON: None. FINDINGS: There is no acute fracture/dislocation evident in the either hand. There are moderate degenerative ch anges of the right first carpometacarpal joint with bony productive change, joint space narrowing, an d opposing surface sclerosis as well as multiple carpal bone cysts. No focal soft tissue swelling is noted. No ulnar styloid erosion. Minimal degenerative changes of the distal interphalangeal joints ar e seen as joint space narrowing. In regards to the left hand there are mild degenerative changes of the left first metacarpal phalange al joint demonstrated as joint space narrowing and opposing surface sclerosis with mild degenerative changes of the distal interphalangeal joints demonstrated as bony productive change, sclerosis, and j oint space narrowing. There is fracture deformity of the distal ulna, chronic appearing. Multiple oss eous cysts are seen within the carpal bones. No focal soft tissue swelling. IMPRESSION: 1. No acute fracture or dislocation in either hand. 2. Moderate right and mild left arthropathy most fitting with nonerosive osteoarthropathy.
== END | disposition home or self-care (01) ==
LOC: RADXRMAIN 14:10
PROVIDERS: ATTEND Internal Medicine
DX: M17.12 Unilateral primary osteoarthritis, left knee (principal); M19.042 Primary osteoarthritis, left hand; M19.041 Primary osteoarthritis, right hand
CPT/HCPCS: 73502

== ENCOUNTER → 2018-04-12 | Outpatient (CLI) | payer MEDICARE, OTHER ==
--- NOTE | 2018-04-13 10:12 | NM ---
EXAMINATION TYPE: NM thyroid image w uptake DATE OF EXAM: 04/13/2018 COMPARISON: CTA neck August 19, 2016 HISTORY: Unspecified thyrotoxicosis without storm per order. Symptoms of thyroid swelling, sweating, increased appetite, tremors, as well as irritability and insomnia all per patient. TECHNIQUE: Thyroid iodine uptake is calculated and images performed after the oral administration of 321 uCi 1-123 Capsule. FINDINGS: There is normal distribution of activity throughout the gland. The 4 hour iodine uptake is calculated at 7% (normal range 8-14%) minimally diminished from the normal range. The 24-hour iodine uptake is calculated at 14% (normal range 15-35%) minimally diminished from the normal range. IMPRESSION: Normal thyroid scan. Uptake is minimally diminished from the normal range, correlate for possible mild hypothyroidism.
== END | disposition home or self-care (01) ==
LOC: RADNMMAIN 09:32
PROVIDERS: ATTEND Internal Medicine
DX: R94.6 Abnormal results of thyroid function studies (principal)
CPT/HCPCS: 78014; A9516

== ENCOUNTER → 2018-05-10 | Outpatient (CLI) | payer MEDICARE, OTHER ==
--- NOTE | 2018-05-10 16:36 | CT ---
EXAMINATION TYPE: CT abdomen pelvis w con DATE OF EXAM: 05/10/2018 COMPARISON: Abdomen pain INDICATION: abdominal pain and nausea X 2 months DLP: 1201 mGycm, Automated exposure control for dose reduction was used. CONTRAST: 100 mL of Isovue 300. Study performed with Oral Contrast TECHNIQUE: Axial images were obtained from above the diaphragm to the pubic rami in the axial plane a t 5 mm thick sections. Reconstructed images are reviewed on the computer in the coronal plane. FINDINGS: Limited CT sections are obtained the lung bases. The lung bases are clear. CT ABDOMEN: Liver: Normal Spleen: Normal Pancreas: Normal Adrenal glands: The adrenal glands are normal. Gallbladder: Normal Kidneys: No masses are evident. No hydronephrosis is present. No cysts are present. Delayed images were obtained through the kidneys, which remain unremarkable. Aorta: Vascular calcification is within the aorta. Inferior vena cava: Normal. CT PELVIS: Loops of bowel within the abdomen and pelvis are normal. There are loops of bowel which are incom pletely distended or lack oral contrast limiting their evaluation. Fecal debris is within the colon. Appendix: Normal as visualized. Urinary bladder: Normal. Genitourinary structures: Uterus and ovaries are not identified. Osseous structures: No suspicious lytic or sclerotic lesions. IMPRESSIONS: 1. No suspicious changes to account for patient's symptoms
== END | disposition home or self-care (01) ==
LOC: RADCTMAIN 14:22
PROVIDERS: ATTEND Internal Medicine
DX: R10.84 Generalized abdominal pain (principal)
CPT/HCPCS: 82565; 84520; 74177; 36415; Q9967

== ENCOUNTER → 2018-05-25 | Day surgery (SDC) | payer MEDICARE, OTHER ==
[2018-05-23 15:14] VITALS: BMI 29.9
[~2018-05-25] MED LIST: LACTATED RINGERS 1,000 ML IV SCH; LIDOCAINE 1% 20 ML VIAL (10MG/ML) FOR IV START INTRADERMA PRN; PROPOFOL 10 MG/ML 20 ML VIAL IV ONE
[2018-05-25 08:07] VITALS: TEMP 98.1
[2018-05-25 08:07] LABS: Glucose,Whole Blood 100 mg/dL (75-99)
--- NOTE | 2018-05-25 08:46 | P.PCN ---
Date of Procedure: 05/25/18 Procedure(s) Performed: Brief history: Patient is a pleasant 67-year-old white female, scheduled for an elective upper endoscopy as well as colonoscopy as a part of evaluation of abdominal pain, nausea and Hemoccult-positive stool. Procedure performed: Esophagogastroduodenoscopy with biopsy Colonoscopy with snare polypectomy Preoperative diagnosis: GERD/Hemoccult positive stool [place] [facility] [place]: After informed consent was obtained from the patient was brought into the endoscopy unit and IV sedation was administered by anesthesia under continuous monitoring. Initially upper endoscopy was done. The Olympus GF 160 video endoscope was inserted inserted into the mouth and esophagus intubated without any difficulty and was gradually advanced into the stomach and duodenum and carefully examined. The bulb and second part of the duodenum appeared normal. The scope was then withdrawn into the stomach adequately insufflated with air and upon careful examination the antrum had mild gastritis and biopsies were done from this area. The body, cardia and fundus appeared normal. The scope was then withdrawn into the esophagus. The GE junction was located at 40 cm to the incisors. It appeared regular with no erythema erosions or ulcerations. Rest of the esophagus appeared normal. Patient tolerated the procedure well. At this time the patient continued to remain sedation. Initial digital rectal examination was normal. Olympus CF 160 video colonoscope was then inserted into the rectum and gradually advanced to the cecum without any difficulty. Careful examination was performed as the scope was gradually being withdrawn. The prep was excellent. The cecum, ascending colon appeared normal. In the hepatic flexure there was a 1 cm polyp that was removed by snare polypectomy. Rest of the, transverse colon, descending colon, sigmoid colon and rectum appeared normal. Retroflexion was performed in the rectum and no lesions were noted. Patient tolerated the procedure well. Impression: 1. Upper endoscopy revealed small hiatal hernia and mild antral gastritis 2. Colonoscopy revealed 1 cm hepatic flexure polyp status post snare polypectomy Recommendations: Findings of this examination were discussed with the patient as well as her family. She was advised to follow with the biopsy results. If the biopsy shows adenoma, she can have a repeat colonoscopy in 3 years
[2018-05-25 09:03] VITALS: RESP 16
[2018-05-25 09:18] VITALS: BP 108/62; PULSE 59
== END | disposition home or self-care (01) ==
LOC: ORWHC2ENDO 07:35
PROVIDERS: ATTEND Internal Medicine Gastroenterology
DX: K29.50 Unspecified chronic gastritis without bleeding (principal); K21.9 Gastro-esophageal reflux disease without esophagitis; K44.9 Diaphragmatic hernia without obstruction or gangrene; D12.3 Benign neoplasm of transverse colon; I10 Essential (primary) hypertension; R19.5 Other fecal abnormalities; E78.5 Hyperlipidemia, unspecified; E11.9 Type 2 diabetes mellitus without complications; Z79.84 Long term (current) use of oral hypoglycemic drugs; Z79.82 Long term (current) use of aspirin; Z79.899 Other long term (current) drug therapy
CPT/HCPCS: 88305; 45385; 43239; J2704

== ENCOUNTER → 2018-06-08 | Outpatient (CLI) | payer MEDICARE, OTHER ==
--- NOTE | 2018-06-08 09:43 | NM ---
EXAMINATION TYPE: NM gastric emptying study DATE OF EXAM: 06/08/2018 COMPARISON: NONE HISTORY: Decreased appetite, reflux, nausea, and constipation. History of diabetes. Following administration of 2.0 mCi Tc 99m Sulfur Colloid with 1 cup of oatmeal projection images of the abdomen were obtained 10 minutes post ingestion. When possible, both anterior and posterior proje ction images were obtained to allow the calculation of the geometric mean activity. Clearance: 67 % Half-life: 40 min Gastroesophagel reflux: None IMPRESSION: Gastric emptying: No evidence of gastroparesis. Abnormally rapid emptying of the stomach contents th at may be real estate representative of early dumping syndrome which can can present with similar symptoms as gas troparesis. Gastroesophageal reflux: None
== END ==
LOC: RADNMMAIN 06:51
PROVIDERS: ATTEND Internal Medicine
DX: E08.43 Diabetes mellitus due to underlying condition with diabetic autonomic (poly)neuropathy (principal)
CPT/HCPCS: 78264; A9541

== ENCOUNTER → 2019-04-11 | Outpatient (CLI) | payer MEDICARE, OTHER ==
--- NOTE | 2019-04-12 06:58 | US ---
EXAMINATION TYPE: US thyroid st tissue head/neck DATE OF EXAM: 04/11/2019 COMPARISON: NONE CLINICAL HISTORY: E03.9 Hypothyroidism. abn labs GLAND SIZE: Right Lobe: 4.9 x 1.0 x 1.5 cm Overall Parenchyma: homogenous Left Lobe: 3.4 x 1.0 x 1.3 cm Overall Parenchyma: homogeneous Isthmus Thickness: 0.2 cm NODULES RIGHT: # of nodules measured on right: 0 LEFT: # of nodules measured on left: 0 ISTHMUS: # of nodules measured in the isthmus: 0 Bilateral neck scanned, no evidence of lymphadenopathy. No parathyroid tissue was seen on today's exam IMPRESSION: Thyroid echotexture is overall within normal limits as is the thyroid size. No discrete thyroid nodul e seen.
== END | disposition home or self-care (01) ==
LOC: RADUSWWP 16:00
PROVIDERS: ATTEND Internal Medicine
DX: E03.9 Hypothyroidism, unspecified (principal)
CPT/HCPCS: 76536

== ENCOUNTER → 2019-05-01 | Outpatient (CLI) | payer MEDICARE, OTHER ==
--- NOTE | 2019-05-02 10:58 | NM ---
EXAMINATION TYPE: NM thyroid image w uptake DATE OF EXAM: 05/02/2019 COMPARISON: 04/13/2018 HISTORY: Hypothyroidism TECHNIQUE: Thyroid iodine uptake is calculated and images performed after the oral administration of 313 uCi 1-123 Capsule. FINDINGS: There is normal distribution of activity throughout the gland. Right thyroid lobe is incide ntally larger than the left. The 4 hour iodine uptake is calculated at 7% (normal range 8-14%). The 24-hour iodine uptake is calculated at 14.9% (normal range 15-35%). IMPRESSION: Mildly decreased thyroid uptake as seen on the prior of 2017. Findings are compatible wit h hypothyroidism.
== END | disposition home or self-care (01) ==
LOC: RADNMMAIN 09:37
PROVIDERS: ATTEND Internal Medicine
DX: E03.9 Hypothyroidism, unspecified (principal)
CPT/HCPCS: 78014; A9516

== ENCOUNTER → 2019-08-08 | Outpatient (CLI) | payer MEDICARE, OTHER | END | disposition home or self-care (01) | DX: K76.0 Fatty (change of) liver, not elsewhere classified (principal) | CPT/HCPCS: 74183; A9585 ==

== ENCOUNTER 2020-08-31 12:34 | Emergency (ER) | payer MEDICARE, OTHER ==
[2020-08-31 12:58] VITALS: RESP 18
--- NOTE | 2020-08-31 12:58 | ED ---
GI Bleed HPI - General Source: patient, RN notes reviewed Mode of arrival: ambulatory Limitations: no limitations <Kris Rosenthal - Last Filed: 08/31/20 12:55> <Rubina Pino - Last Filed: 08/31/20 17:43> - General Stated complaint: rectal bleeding Time Seen by Provider: 08/31/20 12:53 - History of Present Illness Initial comments: This a 69-year-old female presents emergency Department chief complaint of rectal bleeding. Patient states that she's had rectal bleeding the last few days. Patient states she contacted her PCP who sent her in for evaluation. She states her is bleeding with even without bowel movement. She states there's been clots, bright red blood. Patient states that her colonoscopy 3 years ago. Patient does take aspirin. Patient has have some mild lower abdominal pain. (Kris Rosenthal) Patient reports red bloody bm began evening with lower abdominal cramping. Only having 1 BM daily. No history of GI bleeding. 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 No CP, SOB, lightheadedness. Previous colonoscopy by Dr Bryant 3 years ago, had polyps, advised to follow up in 3 years. (Rubina Pino) - Related Data Home Medications Medication Instructions Recorded Confirmed Lansoprazole 30 mg PO DAILY 05/23/18 08/31/20 Multivit-Min/Iron/Folic/Lutein 1 tablet PO DAILY 05/23/18 08/31/20 [Centrum Silver Women Tablet] sitaGLIPtin [Januvia] 100 mg PO DAILY 05/23/18 08/31/20 Atorvastatin Calcium [Lipitor] 80 mg PO HS 08/31/20 08/31/20 Losartan Potassium 100 mg PO DAILY 08/31/20 08/31/20 Zolpidem [Ambien] 5 mg PO HS PRN 08/31/20 08/31/20 Previous Rx's Medication Instructions Recorded Aspirin 325 mg PO DAILY #30 tab 08/21/16 Amoxic-Pot Clav 875-125Mg 1 tab PO Q12HR 7 Days #14 tab 08/31/20 [Augmentin 875-125] Allergies Allergy/AdvReac Type Severity Reaction Status Date / Time No Known Allergies Allergy Verified 08/31/20 16:47 Review of Systems ROS Other: All systems not noted in ROS Statement are negative. <Kris Rosenthal - Last Filed: 08/31/20 12:55> ROS Other: All systems not noted in ROS Statement are negative. <Rubina Pino - Last Filed: 08/31/20 17:43> ROS Statement: Those systems with pertinent positive or pertinent negative responses have been documented in the HPI. Past Medical History Past Medical History: Diabetes Mellitus, GERD/Reflux, Hyperlipidemia, Hypertension Additional Past Medical History / Comment(s): essential tremors. PERSISTENT NAUSEA FOR PAST 3 MONTHS. POSSIBLE CVA IN JULY 2016 History of Any Multi-Drug Resistant Organisms: None Reported Past Surgical History: Section, Hysterectomy Additional Past Surgical History / Comment(s): C-SECT X 4. COLONOSCOPY Past Anesthesia/Blood Transfusion Reactions: No Reported Reaction Past Psychological History: No Psychological Hx Reported Past Alcohol Use History: None Reported Past Drug Use History: None Reported - Past Family History Father Family Medical History: GERD/Reflux Mother Family Medical History: Cancer, Dementia, Diabetes Mellitus <Kris Rosenthal - Last Filed: 08/31/20 12:55> General Exam General appearance: alert, in no apparent distress <Kris Rosenthal - Last Filed: 08/31/20 12:55> Course Vital Signs 08/31/20 08/31/20 12:54 12:57 Temperature 98 F Pulse Rate 87 Respiratory 18 Rate Blood Pressure 175/114 175/114 O2 Sat by Pulse 93 L Oximetry Medical Decision Making - Lab Data Result diagrams: 08/31/20 13:07 08/31/20 13:07 <Rubina Pino - Last Filed: 08/31/20 17:43> - Medical Decision Making The patient was seen and evaluated, history is obtained from the patient. Patient with a history of colon polyps on colonoscopy 3 years ago. 5 days of intermittent GI bleeding with 0-2 bowel movements daily. No chest pain, palpitations, lightheadedness. Takes aspirin daily no other antiplatelet or anticoagulant medications. Hemoglobin is stable 16.4. CAT scan did reveal possible colitis versus diverticulitis. Patient has no Sirs criteria. No indication for admission to the hospital at this time. Patient be discharged home on oral antibiotics advised to follow with Dr. Bryant outpatient for repeat colonoscopy. Return parameters were discussed the patient was discharged home in stable condition. (Rubina Pino) - Lab Data Lab Results 08/31/20 08/31/20 08/31/20 Range/Units 13:02 13:07 13:07 WBC 6.6 (3.8-10.6) k/uL RBC 5.19 (3.80-5.40) m/uL Hgb 16.4 H (11.4-16.0) gm/dL Hct 45.9 (34.0-46.0) % MCV 88.6 (80.0-100.0) fL MCH 31.6 (25.0-35.0) pg MCHC 35.6 (31.0-37.0) g/dL RDW 12.9 (11.5-15.5) % Plt Count 223 (150-450) k/uL MPV 7.8 Neutrophils % 67 % Lymphocytes % 23 % Monocytes % 6 % Eosinophils % 2 % Basophils % 1 % Neutrophils # 4.4 (1.3-7.7) k/uL Lymphocytes # 1.5 (1.0-4.8) k/uL Monocytes # 0.4 (0-1.0) k/uL Eosinophils # 0.2 (0-0.7) k/uL Basophils # 0.0 (0-0.2) k/uL APTT (22.0-30.0) sec Sodium 141 (137-145) mmol/L Potassium 4.1 (3.5-5.1) mmol/L Chloride 106 (98-107) mmol/L Carbon Dioxide 27 (22-30) mmol/L Anion Gap 8 mmol/L BUN 14 (7-17) mg/dL Creatinine 0.81 (0.52-1.04) mg/dL Est GFR (CKD-EPI)AfAm 88 (>60 ml/min/1.73 sqM) Est GFR (CKD-EPI)NonAf 76 (>60 ml/min/1.73 sqM) Glucose 126 H (74-99) mg/dL Calcium 9.8 (8.4-10.2) mg/dL Total Bilirubin 1.4 H (0.2-1.3) mg/dL AST 49 H (14-36) U/L ALT 50 H (4-34) U/L Alkaline Phosphatase 123 (38-126) U/L Total Protein 8.1 (6.3-8.2) g/dL Albumin 4.5 (3.5-5.0) g/dL Blood Type Blood Type Confirm O Positive Blood Type Recheck Bld Type Recheck Status Antibody Screen Spec Expiration Date 08/31/20 08/31/20 Range/Units 13:07 16:04 WBC (3.8-10.6) k/uL RBC (3.80-5.40) m/uL Hgb (11.4-16.0) gm/dL Hct (34.0-46.0) % MCV (80.0-100.0) fL MCH (25.0-35.0) pg MCHC (31.0-37.0) g/dL RDW (11.5-15.5) % Plt Count (150-450) k/uL MPV Neutrophils % % Lymphocytes % % Monocytes % % Eosinophils % % Basophils % % Neutrophils # (1.3-7.7) k/uL Lymphocytes # (1.0-4.8) k/uL Monocytes # (0-1.0) k/uL Eosinophils # (0-0.7) k/uL Basophils # (0-0.2) k/uL APTT 23.1 (22.0-30.0) sec Sodium (137-145) mmol/L Potassium (3.5-5.1) mmol/L Chloride (98-107) mmol/L Carbon Dioxide (22-30) mmol/L Anion Gap mmol/L BUN (7-17) mg/dL Creatinine (0.52-1.04) mg/dL Est GFR (CKD-EPI)AfAm (>60 ml/min/1.73 sqM) Est GFR (CKD-EPI)NonAf (>60 ml/min/1.73 sqM) Glucose (74-99) mg/dL Calcium (8.4-10.2) mg/dL Total Bilirubin (0.2-1.3) mg/dL AST (14-36) U/L ALT (4-34) U/L Alkaline Phosphatase (38-126) U/L Total Protein (6.3-8.2) g/dL Albumin (3.5-5.0) g/dL Blood Type O Positive Blood Type Confirm Blood Type Recheck No Previous Record Bld Type Recheck Status CABO Indicated Antibody Screen NEGATIVE Spec Expiration Date 09/03/20202306 Disposition <Kris Rosenthal M - Last Filed: 08/31/20 12:55> Is patient prescribed a controlled substance at d/c from ED?: No <Rubina Pino - Last Filed: 08/31/20 17:43> Clinical Impression: Diverticulitis Disposition: HOME SELF-CARE Condition: Stable Instructions (If sedation given, give patient instructions): Diverticulitis (ED), Rectal Bleeding (ED) Referrals: Jose D Grady MD [Primary Care Provider] - 1-2 days
[2020-08-31 13:30] LABS: Basophils % (A) 1 %; Eosinophils # (A) 0.2 k/uL (0-0.7); Eosinophils % (A) 2 %; HCT 45.9 % (34.0-46.0); HGB 16.4 gm/dL (11.4-16.0); Lymphocytes # (A) 1.5 k/uL (1.0-4.8); Lymphocytes % (A) 23 %; MCH 31.6 pg (25.0-35.0); MCHC 35.6 g/dL (31.0-37.0); MCV 88.6 fL (80.0-100.0); Mean Platelet Volume 7.8; Monocytes # (A) 0.4 k/uL (0-1.0); Monocytes % (A) 6 %; Neutrophils # (A) 4.4 k/uL (1.3-7.7); Neutrophils % (A) 67 %; Platelet Count 223 k/uL (150-450); RBC 5.19 m/uL (3.80-5.40); RDW 12.9 % (11.5-15.5); WBC 6.6 k/uL (3.8-10.6)
[2020-08-31 13:37] LABS: Albumin 4.5 g/dL (3.5-5.0); Calcium 9.8 mg/dL (8.4-10.2); Potassium 4.1 mmol/L (3.5-5.1); Total Bilirubin 1.4 mg/dL (0.2-1.3); Total Protein 8.1 g/dL (6.3-8.2)
--- NOTE | 2020-08-31 17:32 | CT ---
EXAMINATION TYPE: CT abdomen pelvis w con DATE OF EXAM: 08/31/2020 COMPARISON: 05/10/2018. HISTORY: Pelvic pain with blood in the stool CT DLP: 1069.3 mGycm Automated exposure control for dose reduction was used. TECHNIQUE: Helical acquisition of images was performed from the lung bases through the pelvis. CONTRAST: Performed without Oral Contrast and with IV Contrast, patient injected with 100 mL of Isovue 300. FINDINGS: LUNG BASES: Minimal opacity, probably atelectasis. LIVER/GB: No acute abnormality is appreciated. Hepatic steatosis. PANCREAS: Scattered pancreatic calcifications, in keeping with chronic pancreatitis. No evidence of a cute pancreatitis. SPLEEN: No significant abnormality is seen. ADRENALS: No significant abnormality is seen. KIDNEYS: No significant abnormality is seen. FREE AIR: No free air is visualized. RETROPERITONEAL ADENOPATHY: None visualized REPRODUCTIVE ORGANS: No significant abnormality is seen URINARY BLADDER: No significant abnormality is seen. PELVIC ADENOPATHY: None visualized. OSSEOUS STRUCTURES: No significant abnormality is seen. BOWEL: Mild fat stranding involving the proximal descending colonic diverticula with bowel wall thic kening. No bowel obstruction, free air or fluid. OTHER: None IMPRESSION: INFLAMMATORY CHANGES INVOLVING THE PROXIMAL DESCENDING COLON, CONSISTENT WITH ACUTE DIVERTICULITIS AN D/OR COLITIS.
[2020-08-31] MEDS ORDERED: AMOXIC-POT CLAV 875MG STARTER PACK 2 TAB BTL PO STA (17:38)
[2020-08-31 18:45] VITALS: BP 158/89; PULSE 82; TEMP 97.3
== END 2020-08-31 18:45 | disposition home or self-care (01) ==
LOC: EC 12:34
DX: K57.92 Diverticulitis of intestine, part unspecified, without perforation or abscess without bleeding (principal); E11.9 Type 2 diabetes mellitus without complications; E78.5 Hyperlipidemia, unspecified; I10 Essential (primary) hypertension; K21.9 Gastro-esophageal reflux disease without esophagitis; Z79.82 Long term (current) use of aspirin; Z79.84 Long term (current) use of oral hypoglycemic drugs; Z79.899 Other long term (current) drug therapy; Z86.73 Personal history of transient ischemic attack (TIA), and cerebral infarction without residual deficits
CPT/HCPCS: 36415; 86900; 86901; 80053; 85025; 85730; 86850; 74177; 99285; Q9967

== ENCOUNTER 2020-10-21 06:37 | Day surgery (SDC) | payer MEDICARE, OTHER ==
[2020-10-16 13:22] VITALS: BMI 30.6
[~2020-10-21 06:37] MED LIST changes: +LIDOCAINE 1% (10MG/ML) FOR IV START INTRADERMA PRN; -LIDOCAINE 1% 20 ML VIAL (10MG/ML) FOR IV START INTRADERMA PRN; -PROPOFOL 10 MG/ML 20 ML VIAL IV ONE
[2020-10-21 07:20] VITALS: RESP 16; TEMP 97.7
[2020-10-21 07:35] LABS: Glucose,Whole Blood 113 mg/dL (75-99)
[2020-10-21] MEDS ORDERED: PROPOFOL 10 MG/ML 20 ML VIAL IV ONE (07:35)
--- NOTE | 2020-10-21 07:55 | P.PCN ---
Date of Procedure: 10/21/20 Procedure(s) Performed: BRIEF HISTORY: Patient is a 69-year-old pleasant female scheduled for an elective colonoscopy as a part of evaluation of recent episode of lower abdominal pain followed by rectal bleeding for 3 days' duration. She went to the ER. She of abdomen and pelvis done that showed diverticulosis. PROCEDURE PERFORMED: Colonoscopy snare polypectomy . PREOPERATIVE DIAGNOSIS: Lower abdominal pain and rectal bleeding of 3 days' duration . IV sedation per Anesthesia. PROCEDURE: After informed consent was obtained, the patient, was brought into the endoscopy unit. IV sedation was administered by Anesthesia under continuous monitoring. Digital rectal examination was normal. Initially the Olympus CF-160 flexible video colonoscope was then inserted in the rectum, gradually advanced into the cecum without any difficulty. Careful examination was performed as the scope was gradually being withdrawn. Ileocecal valve and the appendiceal orifice were visualized and appeared normal. Prep was excellent. Mucosa of the cecum, and a 5 limited flat polyp that was moved by snare polypectomy. In the hepatic flexure there was another 5 mm polyp that was removed by snare polypectomy. Rest of the ascending colon, transverse colon, descending colon, sigmoid colon, and rectum appeared normal. Scattered sigmoid diverticulosis Retroflexion was performed in the rectum and small internal hemorrhoids were seen. The patient tolerated the procedure well. IMPRESSION: 5 mm flat cecal polyp status post polypectomy 5 mm hepatic flexure polyp status post polypectomy Scattered sigmoid diverticulosis Small internal hemorrhoids RECOMMENDATIONS: Findings of this examination were discussed with the patient as well as a family. She was advised to follow with the biopsy results. If the biopsy biopsy revealed adenoma she can have a repeat colonoscopy in 5 years.
[2020-10-21 08:13] VITALS: BP 149/95; PULSE 70
== END 2020-10-21 08:54 | disposition home or self-care (01) ==
LOC: ORWHC2ENDO 06:37
PROVIDERS: ATTEND Internal Medicine Gastroenterology
DX: D12.3 Benign neoplasm of transverse colon (principal); K63.5 Polyp of colon; I10 Essential (primary) hypertension; E11.9 Type 2 diabetes mellitus without complications; K21.9 Gastro-esophageal reflux disease without esophagitis; Z86.73 Personal history of transient ischemic attack (TIA), and cerebral infarction without residual deficits; R25.1 Tremor, unspecified; Z90.710 Acquired absence of both cervix and uterus; Z98.891 History of uterine scar from previous surgery; Z79.84 Long term (current) use of oral hypoglycemic drugs; Z79.82 Long term (current) use of aspirin; Z79.899 Other long term (current) drug therapy
CPT/HCPCS: 88305; 45385; J2704

== ENCOUNTER → 2022-03-29 | Outpatient (CLI) | payer MEDICARE, OTHER ==
--- NOTE | 2022-03-29 12:02 | MM ---
Reason for Exam: Screening (asymptomatic). Last mammogram was performed 5 year(s) and 3 month(s) ago. Patient History: Menarche at age 15. First Full-Term at age 22. Left ovary removed at age 42. Right ovary removed at age 42. Hysterectomy at age 42. Postmenopausal. Mother had breast cancer, age 70. Risk Values: Heike 5 year model risk: 3.3%. NCI Lifetime model risk: 9.9%. Prior Study Comparison: 03/23/2006 Bilateral Screening Mammogram, [facility]. 05/09/2007 Bilateral Screening Mammogram, [facility]. 01/09/2017 Bilateral Screening Mammogram, [facility]. Tissue Density: There are scattered fibroglandular densities. Findings: Analyzed By CAD. Occasional scattered tiny benign-appearing round and linear calcification bilaterally is now present. Stable benign-appearing right axillary lymph node. There is no suspicious new group of microcalcifications or new suspicious mass in either breast. Overall Assessment: Benign, BI-RAD 2 Management: Screening Mammogram of both breasts in 1 year. A clinical breast exam by your physician is recommended on an annual basis and results should be correlated with mammographic findings. Electronically signed and approved by: Jovan Claire M.D.
--- NOTE | 2022-03-29 15:51 | BD ---
EXAMINATION TYPE: Axial Bone Density DATE OF EXAM: 03/29/2022 COMPARISON: 01.09.2017 CLINICAL HISTORY: 71 years year old Female. ICD-10 CODE: M81.0 AGE-RELATED OSTEOPOROSIS Height: 65IN Weight: 181LB FRAX RISK QUESTIONS: History of Fracture in Adulthood: YES Secondary Osteoporosis: 3. Menopause before 45: YES RISK FACTORS HISTORY OF: Family History of Osteoporosis: NONE Active: YES Postmenopausal woman: YES Take estrogen and/or progesterone medications: YES, NONE CURRENT How lon YEAR Lost more than 2 inches in height since high school: NO MEDICATIONS: Thyroid Medications: Which medication: YES SYNTHROID How LonMONTHS Additional Medications: HUMARA, REFLUX, BP MED, CHOLESTEROL, VITAMIN D Additional History: EXAM MEASUREMENTS: Bone mineral densitometry was performed using the [employer]. Bone mineral density as measured about the Lumbar spine is: ----- L1-L4(G/cm2): 1.256 T Score Values are as follows: ----- L1: -0.5 ----- L2: 0.2 ----- L3: 1.2 ----- L4: 1.3 ----- L1-L4: 0.6 Bone mineral density has: Increased 1.3% since study of: 01.09.17 Bone mineral density about the R hip (g/cm2): 0.931 Bone mineral density about the L hip (g/cm2): 0.907 T Score values are as follows: -----R Neck: -1.1 -----L Neck: -1.4 -----R Total: -0.6 -----L Total: -0.8 Bone mineral density has: Decreased 3.4% since study of: 01.09.17 FRAX%s: The graph provided illustrates a 15% chance for a major osteoporotic fx and a 1.9% chance for the hips probability for fx in 10 years time. IMPRESSION: Osteopenia (T Score between -2.5 and -1). There is slightly increased risk of fracture and the patient may be considered for treatment. Re-Screen 2-5 years. NOTE: T-SCORE=SD OF THE YOUNG ADULT MEAN.
== END | disposition home or self-care (01) ==
LOC: RADMAMWWP 09:09
PROVIDERS: ATTEND Internal Medicine
DX: Z12.31 Encounter for screening mammogram for malignant neoplasm of breast (principal); M85.89 Other specified disorders of bone density and structure, multiple sites; Z78.0 Asymptomatic menopausal state; Z80.3 Family history of malignant neoplasm of breast
CPT/HCPCS: 77063; 77067; 77080

== ENCOUNTER → 2024-03-22 | Outpatient (CLI) | payer MEDICARE ==
--- NOTE | 2024-03-22 12:44 | XR ---
EXAMINATION TYPE: XR shoulder complete RT DATE OF EXAM: 03/22/2024 CLINICAL HISTORY: pain TECHNIQUE: Three views of the right shoulder are obtained. COMPARISON: None FINDINGS: There is no acute fracture/dislocation evident. The acromioclavicular and glenohumeral marysol int spaces appear mildly narrowed. The visualized ribs are intact and unremarkable. IMPRESSION: 1. There is no acute fracture or dislocation. ICD 10 NO FRACTURE, INITIAL EVALUATION [facility], , 03/22/2024 12:41 PM
== END | disposition home or self-care (01) ==
LOC: RADXRMAIN 12:32
PROVIDERS: ATTEND Internal Medicine
DX: M25.511 Pain in right shoulder (principal)

== ENCOUNTER → 2024-04-01 | Outpatient (CLI) | payer MEDICARE ==
--- NOTE | 2024-04-01 13:35 | MM ---
Reason for Exam: Screening (asymptomatic). Last mammogram was performed 2 year(s) and 0 month(s) ago. Patient History: Menarche at age 15. First Full-Term at age 22. Left ovary removed at age 42. Right ovary removed at age 42. Hysterectomy at age 42. Postmenopausal. Patient has history of breast feeding. Mother had breast cancer, age 70. Risk Values: Heike 5 year model risk: 3.3%. NCI Lifetime model risk: 9.1%. Prior Study Comparison: 05/09/2007 Bilateral Screening Mammogram, [facility]. 01/09/2017 Bilateral Screening Mammogram, [facility]. 03/29/2022 Bilateral MG 3D screening mammo w/cad, [facility]. Tissue Density: There are scattered areas of fibroglandular density. Findings: Analyzed By CAD. There is no suspicious group of microcalcifications or new suspicious mass in either breast. Overall Assessment: Benign, BI-RAD 2 Management: Screening Mammogram of both breasts in 1 year. . Patient should continue monthly self-breast exams. A clinical breast exam by your physician is recommended on an annual basis. This exam should not preclude additional follow-up of suspicious palpable abnormalities. Note on Heike scores and lifetime risk: 1. A Heike score greater than 3% is considered moderate risk. If this is the case, consider specialist referral to assess eligibility for a risk reducing agent. 2. If overall lifetime risk for the development of breast cancer is 20% or higher, the patient may qualify for future screening with alternating mammogram and breast MRI. [facility], , 04/01/2024 1:32 PM. Electronically signed and approved by: Josh Nagel M.D. Radiologis
--- NOTE | 2024-04-03 21:37 | BD ---
EXAMINATION TYPE: Axial Bone Density DATE OF EXAM: 04/01/2024 CLINICAL HISTORY: 73 years old Female. ICD-10 CODE: M85.852 Osteopenia , Z78.0 Height: 64.5 in Weight: 186 lbs FRAX RISK QUESTIONS: History of Fracture in Adulthood: rt ankle fx age 43 Secondary Osteoporosis: 3. Menopause before 45: total hysterectomy age 42 MEDICATIONS: Thyroid Medications: yes Which medication: Levothyroxine How Lon years EXAM MEASUREMENTS: Bone mineral densitometry was performed using the [employer] System. Bone mineral density as measured about the Lumbar spine is: ----- L1-L4(G/cm2): 1.251 T Score Values are as follows: ----- L1: -0.3 ----- L2: -0.2 ----- L3: 1.3 ----- L4: 1.2 ----- L1-L4: 0.6 Z Score Values are as follows: ----- L1: 0.8 ----- L2: 0.8 ----- L3: 2.3 ----- L4: 2.3 ----- L1-L4: 1.6 Bone mineral density has: Decreased -0.4% since study of: 03/29/2022 Bone mineral density about the R hip (g/cm2): 0.960 Bone mineral density about the L hip (g/cm2): 0.883 T Score values are as follows: -----R Neck: -1.0 -----L Neck: -1.5 -----R Total: -0.4 -----L Total: -1.0 Z Score values are as follows: -----R Neck: 0.3 -----L Neck: -0.2 -----R Total: 0.7 -----L Total: 0.1 Bone mineral density has: Increased 0.2% since study of: 03/29/2022 FRAX%s: The graph provided illustrates a 15.6% chance for a major osteoporotic fx and a 2.3% chance f or the hips probability for fx in 10 years time. IMPRESSION: Osteopenia (T Score between -2.5 and -1). There is slightly increased risk of fracture and the patient may be considered for treatment. Re-Screen 2-5 years. NOTE: T-SCORE=SD OF THE YOUNG ADULT MEAN. [facility], , 04/03/2024 9:35 PM
== END | disposition home or self-care (01) ==
LOC: RADMAMWWP 12:05
PROVIDERS: ATTEND Internal Medicine
DX: Z12.31 Encounter for screening mammogram for malignant neoplasm of breast (principal); Z90.722 Acquired absence of ovaries, bilateral; Z78.0 Asymptomatic menopausal state; Z80.3 Family history of malignant neoplasm of breast; R92.323 Mammographic fibroglandular density, bilateral breasts; M85.89 Other specified disorders of bone density and structure, multiple sites
CPT/HCPCS: 77063; 77067; 77080

== ENCOUNTER → 2024-04-04 | Outpatient (CLI) | payer MEDICARE ==
--- NOTE | 2024-04-04 17:13 | CA ---
Transthoracic Echo Report Name: Kenzie Borges Age: 73 Gender: F : 1950 Exam Date: 04/04/2024 13:55 Exam Location: [place] [facility] Ht (in): 64 Wt (lb): 186 Ordering Physician: Jose D Grady MD Attending/Referring Phys: Cath Lab Radiological Technologist Tami Roman RDCS Procedure CPT: Indications: I65.23, I25.10 Cardiac Hx: Technical Quality: Fair Contrast 1: Total Dose (mL): Contrast 2: Total Dose (mL): MEASUREMENTS (Male / Female) Normal Values 2D ECHO LV Diastolic Diameter PLAX 4.2 cm 4.2 - 5.9 / 3.9 - 5.3 cm LV Systolic Diameter PLAX 3.0 cm IVS Diastolic Thickness 1.5 cm 0.6 - 1.0 / 0.6 - 0.9 cm LVPW Diastolic Thickness 1.4 cm 0.6 - 1.0 / 0.6 - 0.9 cm LV Relative Wall Thickness 0.7 RV Internal Dim ED PLAX 2.9 cm LA Systolic Diameter LX 3.2 cm 3.0 - 4.0 / 2.7 - 3.8 cm M-MODE Aortic Root Diameter MM 2.8 cm LA Systolic Diameter MM 1.9 cm LA Ao Ratio MM 0.7 DOPPLER AV Peak Velocity 155.1 cm/s AV Peak Gradient 9.6 mmHg Mitral E Point Velocity 69.1 cm/s Mitral A Point Velocity 90.7 cm/s Mitral E to A Ratio 0.8 MV Deceleration Time 344.6 ms MV E' Velocity 7.0 cm/s Mitral E to MV E' Ratio 9.9 FINDINGS Left Ventricle Left ventricular ejection fraction is estimated at 55-60 %. Left ventricular cavity size normal. Moderately increased septal wall thickness. Moderately increased posterior wall thickness. Normal left ventricular wall motion. Right Ventricle Normal right ventricular size and function. Unable to estimate the right ventricular systolic pressure. Right Atrium Right atrium not well visualized. Left Atrium Normal left atrial size. No left atrial thrombus or mass present. Mitral Valve Structurally normal mitral valve. No mitral stenosis, regurgitation or prolapse. Aortic Valve Trileaflet aortic valve. No aortic valve stenosis or regurgitation. Tricuspid Valve Structurally normal tricuspid valve. No tricuspid stenosis, regurgitation or prolapse. Pulmonic Valve Structurally normal pulmonic valve. Trace to mild pulmonic regurgitation. Pericardium No pericardial or pleural effusion. Aorta Normal size aortic root and proximal ascending aorta. CONCLUSIONS Normal LV function Previewed by: Dr. Lang Bryant MD (Electronically Signed) Final Date: 04 April 2024 17:12
--- NOTE | 2024-04-04 18:32 | US ---
EXAMINATION TYPE: US carotid duplex BILAT DATE OF EXAM: 04/04/2024 COMPARISON: NONE CLINICAL INDICATION: Female, 73 years old with history of [id number] CAROTID STENOSIS, BILAT; Additional History: G45.9 Transient Ischemic Attack (TIA) various Most positive vascular findings of extracranial vessels; specified laterality eye & ear disorders TECHNIQUE: Grayscale, color Doppler and spectral Doppler evaluation of the bilateral carotid systems and vertebral arteries. Indirect Doppler criteria was utilized. FINDINGS: EXAM MEASUREMENTS: RIGHT: Peak Systolic Velocity (PSV) cm/sec ----- Right CCA: 51 ----- Right ICA: 59 ----- Right ECA: 69 ICA/CCA ratio: 1.2 RIGHT: End Diastole cm/sec ----- Right CCA: 21 ----- Right ICA: 26 ----- Right ECA: 14 LEFT: Peak Systolic Velocity (PSV) cm/sec ----- Left CCA: 55 ----- Left ICA: 67 ----- Left ECA: 57 ICA/CCA ratio: 1.2 LEFT: End Diastole cm/sec ----- Left CCA: 19 ----- Left ICA: 29 ----- Left ECA: 10 VERTEBRALS (direction of flow): Right Vertebral: Antegrade Left Vertebral: Antegrade Rhythm: Normal HEAD OF BUSINESS DEVELOPMENT NOTES: No intimal thickening, plaque, or elevated velocities seen. Color Doppler imaging shows patency with blood flow throughout the carotid artery. Spectral waveforms are within normal limits. IMPRESSION: 1. No suspicious flow limiting stenosis based on velocities. Criteria for Assigning % of Stenosis / Diameter reduction (Estimation based on the indirect measurements of the internal carotid artery velocities (ICA PSV). 1. Normal (no stenosis)=ICA PSV < 125 cm/s: ratio < 2.0: ICA EDV<40 cm/s. 2. Less than 50% stenosis=ICA PSV < 125 cm/s: ratio < 2.0: ICA EDV<40 cm/s. 3. 50 to 69% stenosis=ICA PSV of 125 to 230 cm/s: ration 2.0 ? 4.0: ICA EDV 40-100 cm/s. 4. Greater than 70% stenosis to near occlusion= ICA PSV > 230 cm/s: ratio > 4.0: ICA EDV > 100 cm/s. 5. Near occlusion= ICA PSV velocities may be low or undetectable: variable ratio and ICA EDV. 6. Total occlusion=unable to detect flow. [facility], , 04/04/2024 6:30 PM
== END | disposition home or self-care (01) ==
LOC: RADECHMAIN 13:49
PROVIDERS: ATTEND Internal Medicine
DX: I25.10 Atherosclerotic heart disease of native coronary artery without angina pectoris (principal); I65.23 Occlusion and stenosis of bilateral carotid arteries; I37.1 Nonrheumatic pulmonary valve insufficiency; Z12.31 Encounter for screening mammogram for malignant neoplasm of breast
CPT/HCPCS: 93306; 93880